=== PATIENT | male | born 1970 | race Caucasian/White ===

== ENCOUNTER 2020-10-20 00:54 | Inpatient (IN) | payer MEDICARE, MEDICAID ==
[~2020-10-20] VITALS: Ht 175.3 cm; Wt 257.9 kg
[2020-10-20 01:32] LABS: PLATELET COUNT 196 x10^3/uL (130-400); RED BLOOD COUNT 4.42 x10^6/uL (4.38-5.82); RED CELL DISTRIBUTION WIDTH 16.3 % (9.4-14.8)
[2020-10-20 01:43] LABS: ALANINE AMINOTRANSFERASE 27 U/L (12-78); ALBUMIN 2.9 g/dL (3.4-5.0); ANION GAP 4 mmol/L (5-15); CALCIUM 8.6 mg/dL (8.5-10.1); CHLORIDE 102 mmol/L (98-107); CREATININE 1.18 mg/dL (0.7-1.3)
[2020-10-20 01:51] LABS: BAND#(MANUAL) 0.19 x10^3/uL; BANDS%(MANUAL) 2 % (0-7); EOS#(MANUAL) 0.94 x10^3/uL (0.0-0.4); EOS% (MANUAL) 10 % (1-7); LYMPH#(MANUAL) 1.03 x10^3/uL (1-3.4); LYMPHS% (MANUAL) 11 % (22-44); MONOS#(MANUAL) 0.56 x10^3/uL (0.3-2.7); MONOS% (MANUAL) 6 % (2-9); SEG#(MANUAL) 6.67 x10^3/uL (1.8-6.8); SEGS% (MANUAL) 71 % (42-75)
[2020-10-20 01:52] LABS: <PLATELET ESTIMATE> ADEQUATE; <PLT MORPHOLOGY> NORMAL PLT MORPH; <RBC MORPHOLOGY> NORMAL
[2020-10-20] MEDS ORDERED: VANCOMYCIN PER PHARMACY MC ONE (02:00)
[2020-10-20] MEDS ORDERED: NYSTATIN TOPICAL POWDER 15GM TP SCH (02:00)
[2020-10-20] MEDS ORDERED: AMPICILLIN/SULBACTAM 3 GM in SODIUM CHLORIDE 0.9% 100 ML IV ONE (02:00)
[2020-10-20] MEDS ORDERED: MORPHINE SULFATE 4 MG/ML, 1ML IVPush PRN (02:00)
[2020-10-20] MEDS ORDERED: PLEASE ENTER ALLERGIES MC SCH (02:00)
[2020-10-20] MEDS ORDERED: SODIUM CHLORIDE FLUSH 10ML SYR IVF ONE (02:00)
[2020-10-20 02:02] LABS: ALKALINE PHOSPHATASE 70 U/L (45-117); BILIRUBIN,TOTAL 0.6 mg/dL (0.2-1.0); TROPONIN I < 0.015 ng/mL (0.000-0.045)
[2020-10-20 02:10] LABS: MICROSCOPIC AUTO
[2020-10-20] MEDS ORDERED: MORPHINE SULFATE 4 MG/ML, 1ML ONE (02:39)
[2020-10-20] MEDS ORDERED: VANCOMYCIN PER PHARMACY MC PRN (03:30)
[2020-10-20] MEDS: PHENAZOPYRIDINE 200 MG TABLET PO SCH ×4 (03:30→21:00)
[2020-10-20] MEDS ORDERED: LABETALOL 5MG/ML, 20ML IVPush PRN (03:30)
[2020-10-20] MEDS ORDERED: ONDANSETRON 2MG/ML, 2ML IVPush PRN (03:30)
[2020-10-20] MEDS ORDERED: MELATONIN 5 MG TABLET PO PRN (03:30)
[2020-10-20] MEDS: ENOXAPARIN 40 MG/0.4 ML SQ SCH (03:30)
[2020-10-20] MEDS: ACETAMINOPHEN 500 MG TABLET PO SCH ×5 (03:30→21:00)
[2020-10-20] MEDS ORDERED: FLUCONAZOLE 400 MG/200 ML 200 ML IV SCH ×2 (03:30→06:30)
[2020-10-20] MEDS ORDERED: KETOROLAC 30 MG/1 ML IV PRN (03:30)
[2020-10-20 05:02] VITALS: BP 139/78
[2020-10-20] MEDS ORDERED: VANCOMYCIN 3,000 MG in SODIUM CHLORIDE 0.9% 500 ML IV ONE (05:30)
[2020-10-20] MEDS ORDERED: PHARMACOKINETIC MONITORING MC PRN (05:30)
[2020-10-20 06:49] VITALS: BP 147/78
[2020-10-20 12:30] VITALS: BP 138/78
[2020-10-20] MEDS ORDERED: FUROSEMIDE 40 MG/4 ML IV ONE (14:00)
[2020-10-20] MEDS ORDERED: POTASSIUM CHLORIDE 20 MEQ TAB.ER.PRT PO ONE (14:00)
[2020-10-20] MEDS: VANCOMYCIN 2,500 MG in SODIUM CHLORIDE 0.9% 500 ML IV SCH (16:56)
[2020-10-20 20:57] VITALS: BP 136/74
[2020-10-21] MEDS: ACETAMINOPHEN 500 MG TABLET PO SCH ×6 (00:01→20:58)
[2020-10-21 01:17] VITALS: BP 113/73
[2020-10-21] MEDS: ENOXAPARIN 40 MG/0.4 ML SQ SCH (03:17)
[2020-10-21] MEDS: VANCOMYCIN 2,500 MG in SODIUM CHLORIDE 0.9% 500 ML IV SCH ×2 (05:05→17:00)
[2020-10-21 05:27] LABS: BASOPHILS % (AUTO) 1 % (0-1); EOSINOPHILS % (AUTO) 7 % (1-7); LYMPHOCYTES % (AUTO) 14 % (22-44); MEAN CORPUSCULAR HEMOGLOBIN 29.1 pg (27.5-34.5); MEAN CORPUSCULAR HGB CONC 32.8 g/dL (33.2-36.2); MEAN PLATELET VOLUME 8.1 fL (7.4-10.4); MONOCYTES % (AUTO) 7 % (2-9); NEUTROPHILS % (AUTO) 71 % (42-75); PLATELET COUNT 182 x10^3/uL (130-400); RED BLOOD COUNT 4.24 x10^6/uL (4.38-5.82)
[2020-10-21 05:46] LABS: CHLORIDE 102 mmol/L (98-107)
[2020-10-21 06:09] LABS: ANION GAP 4 mmol/L (5-15); CALCIUM 8.6 mg/dL (8.5-10.1); CREATININE 0.94 mg/dL (0.7-1.3)
[2020-10-21] MEDS: KETOROLAC 30 MG/1 ML IV SCH ×3 (06:30→22:17)
[2020-10-21] MEDS ORDERED: KETOROLAC MC SCH (06:30)
[2020-10-21 07:25] VITALS: BP 134/75
[2020-10-21] MEDS: FINASTERIDE 5 MG TABLET PO SCH (08:26)
[2020-10-21] MEDS: PHENAZOPYRIDINE 200 MG TABLET PO SCH ×3 (08:26→20:58)
[2020-10-21] MEDS: AMPICILLIN/SULBACTAM 3 GM in SODIUM CHLORIDE 0.9% 100 ML IV SCH ×3 (08:29→20:08)
[2020-10-21 13:10] VITALS: BP 126/71
[2020-10-21 19:23] VITALS: BP 132/72
[2020-10-21] MEDS: ENOXAPARIN 60 MG/0.6 ML SQ SCH (20:08)
[2020-10-21] MEDS: NYSTATIN OINT 15GM TP SCH (22:17)
[2020-10-22 00:04] VITALS: BP 137/74
[2020-10-22] MEDS: ACETAMINOPHEN 500 MG TABLET PO SCH ×6 (01:00→21:27)
[2020-10-22] MEDS: AMPICILLIN/SULBACTAM 3 GM in SODIUM CHLORIDE 0.9% 100 ML IV SCH ×4 (01:58→19:57)
[2020-10-22] MEDS: KETOROLAC 30 MG/1 ML IV SCH ×4 (04:16→22:48)
[2020-10-22 05:35] LABS: BASOPHILS % (AUTO) 1 % (0-1); EOSINOPHILS % (AUTO) 9 % (1-7); LYMPHOCYTES % (AUTO) 19 % (22-44); MEAN CORPUSCULAR HEMOGLOBIN 28.6 pg (27.5-34.5); MEAN CORPUSCULAR HGB CONC 32.5 g/dL (33.2-36.2); MEAN PLATELET VOLUME 7.9 fL (7.4-10.4); MONOCYTES % (AUTO) 7 % (2-9); NEUTROPHILS % (AUTO) 65 % (42-75); PLATELET COUNT 187 x10^3/uL (130-400); RED BLOOD COUNT 4.33 x10^6/uL (4.38-5.82); RED CELL DISTRIBUTION WIDTH 15.9 % (9.4-14.8)
[2020-10-22 05:45] LABS: ANION GAP 3 mmol/L (5-15); CALCIUM 8.6 mg/dL (8.5-10.1); CHLORIDE 102 mmol/L (98-107)
[2020-10-22 05:47] LABS: CREATININE 1.01 mg/dL (0.7-1.3)
[2020-10-22 06:46] VITALS: BP 131/77
[2020-10-22] MEDS: PHENAZOPYRIDINE 200 MG TABLET PO SCH ×3 (08:33→21:26)
[2020-10-22] MEDS: NYSTATIN OINT 15GM TP SCH ×2 (08:34→21:00)
[2020-10-22] MEDS: FINASTERIDE 5 MG TABLET PO SCH ×2 (08:40→08:58)
[2020-10-22] MEDS: ENOXAPARIN 60 MG/0.6 ML SQ SCH ×2 (08:57→21:27)
[2020-10-22 12:01] VITALS: BP 136/85
[2020-10-22 18:49] VITALS: BP 128/75
[2020-10-23 00:46] VITALS: BP 127/76
[2020-10-23] MEDS: ACETAMINOPHEN 500 MG TABLET PO SCH ×6 (01:17→21:27)
[2020-10-23] MEDS: AMPICILLIN/SULBACTAM 3 GM in SODIUM CHLORIDE 0.9% 100 ML IV SCH ×4 (02:41→21:26)
[2020-10-23] MEDS: KETOROLAC 30 MG/1 ML IV SCH ×4 (04:42→21:30)
[2020-10-23 07:05] VITALS: BP 144/82
[2020-10-23] MEDS: PHENAZOPYRIDINE 200 MG TABLET PO SCH ×3 (08:31→21:27)
[2020-10-23] MEDS: FINASTERIDE 5 MG TABLET PO SCH (08:32)
[2020-10-23] MEDS: ENOXAPARIN 60 MG/0.6 ML SQ SCH ×2 (08:33→21:26)
[2020-10-23] MEDS: NYSTATIN OINT 15GM TP SCH ×2 (08:33→21:28)
[2020-10-23 14:07] VITALS: BP 149/92
[2020-10-23 20:15] VITALS: BP 139/78
[2020-10-24 00:06] VITALS: BP 132/79
[2020-10-24] MEDS: ACETAMINOPHEN 500 MG TABLET PO SCH ×6 (01:00→21:17)
[2020-10-24] MEDS: AMPICILLIN/SULBACTAM 3 GM in SODIUM CHLORIDE 0.9% 100 ML IV SCH ×2 (03:27→09:36)
[2020-10-24] MEDS: KETOROLAC 30 MG/1 ML IV SCH ×4 (06:03→23:58)
[2020-10-24 07:00] VITALS: BP 155/79
[2020-10-24] MEDS: NYSTATIN OINT 15GM TP SCH ×2 (09:00→21:23)
[2020-10-24] MEDS: PHENAZOPYRIDINE 200 MG TABLET PO SCH ×3 (09:35→21:17)
[2020-10-24] MEDS: FINASTERIDE 5 MG TABLET PO SCH (09:36)
[2020-10-24] MEDS: ENOXAPARIN 60 MG/0.6 ML SQ SCH ×2 (09:36→21:17)
[2020-10-24] MEDS ORDERED: FUROSEMIDE 40 MG/4 ML IV ONE ×2 (12:30→18:00)
[2020-10-24 13:47] VITALS: BP 124/71
[2020-10-24 20:08] VITALS: BP 160/83
[2020-10-24] MEDS: AMOXICILLIN/CLAV 875-125MG TABLET PO SCH (21:17)
[2020-10-25 01:31] VITALS: BP 140/72
[2020-10-25] MEDS: ACETAMINOPHEN 500 MG TABLET PO SCH ×6 (01:39→20:10)
[2020-10-25] MEDS: KETOROLAC 30 MG/1 ML IV SCH ×4 (06:01→23:32)
[2020-10-25 06:10] LABS: BASOPHILS % (AUTO) 1 % (0-1); EOSINOPHILS % (AUTO) 7 % (1-7); LYMPHOCYTES % (AUTO) 17 % (22-44); MEAN CORPUSCULAR HEMOGLOBIN 28.7 pg (27.5-34.5); MEAN CORPUSCULAR HGB CONC 32.7 g/dL (33.2-36.2); MEAN PLATELET VOLUME 7.8 fL (7.4-10.4); MONOCYTES % (AUTO) 7 % (2-9); NEUTROPHILS % (AUTO) 68 % (42-75); PLATELET COUNT 175 x10^3/uL (130-400); RED BLOOD COUNT 4.42 x10^6/uL (4.38-5.82); RED CELL DISTRIBUTION WIDTH 15.5 % (9.4-14.8)
[2020-10-25 06:21] LABS: ANION GAP 2 mmol/L (5-15); CALCIUM 8.9 mg/dL (8.5-10.1); CHLORIDE 101 mmol/L (98-107); CREATININE 1.03 mg/dL (0.7-1.3)
[2020-10-25 08:37] VITALS: BP 148/70
[2020-10-25] MEDS: PHENAZOPYRIDINE 200 MG TABLET PO SCH ×3 (08:59→20:10)
[2020-10-25] MEDS: AMOXICILLIN/CLAV 875-125MG TABLET PO SCH ×2 (08:59→20:10)
[2020-10-25] MEDS: FINASTERIDE 5 MG TABLET PO SCH (08:59)
[2020-10-25] MEDS: ENOXAPARIN 60 MG/0.6 ML SQ SCH ×2 (08:59→20:09)
[2020-10-25] MEDS: NYSTATIN OINT 15GM TP SCH (09:00)
[2020-10-25] MEDS ORDERED: FUROSEMIDE 20 MG TABLET PO SCH (12:30)
[2020-10-25 12:37] VITALS: BP 162/70
[2020-10-25] MEDS: FUROSEMIDE 20 MG TABLET PO SCH ×2 (14:30→20:10)
[2020-10-25 20:04] VITALS: BP 153/86
[2020-10-26 00:02] VITALS: BP 138/69
[2020-10-26] MEDS: NYSTATIN OINT 15GM TP SCH ×3 (00:13→22:23)
[2020-10-26] MEDS: ACETAMINOPHEN 500 MG TABLET PO SCH ×5 (02:50→21:36)
[2020-10-26] MEDS: KETOROLAC 30 MG/1 ML IV SCH (05:47)
[2020-10-26 07:16] VITALS: BP 147/89
[2020-10-26] MEDS: FUROSEMIDE 20 MG TABLET PO SCH ×2 (10:25→21:37)
[2020-10-26] MEDS: AMOXICILLIN/CLAV 875-125MG TABLET PO SCH ×2 (10:25→21:37)
[2020-10-26] MEDS: PHENAZOPYRIDINE 200 MG TABLET PO SCH ×3 (10:25→21:36)
[2020-10-26] MEDS: ENOXAPARIN 60 MG/0.6 ML SQ SCH ×2 (10:30→21:36)
[2020-10-26] MEDS: FINASTERIDE 5 MG TABLET PO SCH (10:31)
[2020-10-26] MEDS ORDERED: ALLO300T PO (10:50)
[2020-10-26] MEDS ORDERED: FURO40TA6 PO (10:50)
[2020-10-26] MEDS ORDERED: LEVO50CA4 PO (10:50)
[2020-10-26] MEDS ORDERED: DILT360C26 PO (10:50)
[2020-10-26] MEDS ORDERED: LOSA1TAB19 PO (10:50)
[2020-10-26 12:33] VITALS: BP 122/58
[2020-10-26 19:44] VITALS: BP 138/74
[2020-10-27 00:09] VITALS: BP 119/72
[2020-10-27] MEDS: ACETAMINOPHEN 500 MG TABLET PO SCH ×6 (01:39→21:48)
[2020-10-27 06:09] LABS: CHLORIDE 98 mmol/L (98-107)
[2020-10-27 06:14] LABS: ANION GAP 11 mmol/L (5-15); CALCIUM 9.1 mg/dL (8.5-10.1); CREATININE 1.15 mg/dL (0.7-1.3)
[2020-10-27 09:01] VITALS: BP 113/69
[2020-10-27] MEDS: AMOXICILLIN/CLAV 875-125MG TABLET PO SCH ×2 (10:27→20:19)
[2020-10-27] MEDS: FUROSEMIDE 20 MG TABLET PO SCH ×2 (10:28→20:19)
[2020-10-27] MEDS: ENOXAPARIN 60 MG/0.6 ML SQ SCH ×2 (10:28→20:19)
[2020-10-27] MEDS: FINASTERIDE 5 MG TABLET PO SCH (10:28)
[2020-10-27] MEDS: NYSTATIN OINT 15GM TP SCH ×2 (10:29→20:20)
[2020-10-27] MEDS: PHENAZOPYRIDINE 200 MG TABLET PO SCH ×3 (10:30→20:19)
[2020-10-27 12:28] VITALS: BP 136/83
[2020-10-27 19:25] VITALS: BP 132/80
[2020-10-28 00:27] VITALS: BP 158/78
[2020-10-28] MEDS: ACETAMINOPHEN 500 MG TABLET PO SCH ×6 (02:00→21:23)
[2020-10-28] MEDS: LEVOTHYROXINE 50 MCG TABLET PO SCH (05:59)
[2020-10-28] MEDS: PHENAZOPYRIDINE 200 MG TABLET PO SCH ×3 (09:08→21:23)
[2020-10-28] MEDS: AMOXICILLIN/CLAV 875-125MG TABLET PO SCH ×2 (09:08→21:23)
[2020-10-28] MEDS: FUROSEMIDE 20 MG TABLET PO SCH ×2 (09:09→21:23)
[2020-10-28] MEDS: ALLOPURINOL 300 MG TABLET PO SCH (09:09)
[2020-10-28] MEDS: DILTIAZEM CD 180 MG CAP.ER.24H PO SCH (09:09)
[2020-10-28] MEDS: FINASTERIDE 5 MG TABLET PO SCH (09:09)
[2020-10-28] MEDS: ENOXAPARIN 60 MG/0.6 ML SQ SCH ×2 (09:09→21:23)
[2020-10-28] MEDS: NYSTATIN OINT 15GM TP SCH ×2 (09:10→21:24)
[2020-10-28 13:10] VITALS: BP 129/75
[2020-10-28 19:24] VITALS: BP 125/74
[2020-10-29 00:38] VITALS: BP 139/73
[2020-10-29] MEDS: ACETAMINOPHEN 500 MG TABLET PO SCH ×6 (02:06→21:53)
[2020-10-29] MEDS: LEVOTHYROXINE 50 MCG TABLET PO SCH (06:05)
[2020-10-29 06:54] VITALS: BP 129/69
[2020-10-29] MEDS: ALLOPURINOL 300 MG TABLET PO SCH (08:54)
[2020-10-29] MEDS: TAMSULOSIN 0.4 MG CAP.ER.24H PO SCH (08:54)
[2020-10-29] MEDS: DILTIAZEM CD 180 MG CAP.ER.24H PO SCH (08:54)
[2020-10-29] MEDS: AMOXICILLIN/CLAV 875-125MG TABLET PO SCH ×2 (08:54→21:53)
[2020-10-29] MEDS: PHENAZOPYRIDINE 200 MG TABLET PO SCH ×3 (08:55→21:53)
[2020-10-29] MEDS: FUROSEMIDE 20 MG TABLET PO SCH ×2 (08:55→21:53)
[2020-10-29] MEDS: NYSTATIN OINT 15GM TP SCH ×2 (08:55→21:53)
[2020-10-29] MEDS: ENOXAPARIN 60 MG/0.6 ML SQ SCH ×2 (08:57→21:56)
[2020-10-29] MEDS: FINASTERIDE 5 MG TABLET PO SCH (12:14)
[2020-10-29 12:58] VITALS: BP 122/71
[2020-10-29 19:25] VITALS: BP 125/75
[2020-10-30 00:05] VITALS: BP 113/73
[2020-10-30] MEDS: ACETAMINOPHEN 500 MG TABLET PO SCH ×6 (02:28→21:27)
[2020-10-30] MEDS: LEVOTHYROXINE 50 MCG TABLET PO SCH (05:57)
[2020-10-30 07:21] VITALS: BP 152/74
[2020-10-30] MEDS: FUROSEMIDE 20 MG TABLET PO SCH ×2 (09:07→21:27)
[2020-10-30] MEDS: AMOXICILLIN/CLAV 875-125MG TABLET PO SCH ×2 (09:07→21:27)
[2020-10-30] MEDS: ALLOPURINOL 300 MG TABLET PO SCH (09:07)
[2020-10-30] MEDS: TAMSULOSIN 0.4 MG CAP.ER.24H PO SCH (09:07)
[2020-10-30] MEDS: DILTIAZEM CD 180 MG CAP.ER.24H PO SCH (09:07)
[2020-10-30] MEDS: PHENAZOPYRIDINE 200 MG TABLET PO SCH ×3 (09:07→21:27)
[2020-10-30] MEDS: FINASTERIDE 5 MG TABLET PO SCH (09:07)
[2020-10-30] MEDS: NYSTATIN OINT 15GM TP SCH ×2 (09:08→23:33)
[2020-10-30] MEDS: ENOXAPARIN 60 MG/0.6 ML SQ SCH ×2 (09:08→21:28)
[2020-10-30 20:40] VITALS: BP 147/76
[2020-10-30] MEDS: DIAPER RASH/ZINC OXIDE PASTE 40%, 56GM TP SCH (23:41)
[2020-10-31] MEDS: ACETAMINOPHEN 500 MG TABLET PO SCH ×5 (03:14→22:37)
[2020-10-31 03:23] VITALS: BP 115/74
[2020-10-31] MEDS: LEVOTHYROXINE 50 MCG TABLET PO SCH (05:32)
[2020-10-31 06:33] VITALS: BP 137/76
[2020-10-31] MEDS: DIAPER RASH/ZINC OXIDE PASTE 40%, 56GM TP SCH ×2 (09:00→22:18)
[2020-10-31] MEDS: AMOXICILLIN/CLAV 875-125MG TABLET PO SCH (11:36)
[2020-10-31] MEDS: PHENAZOPYRIDINE 200 MG TABLET PO SCH ×3 (11:36→22:18)
[2020-10-31] MEDS: DILTIAZEM CD 180 MG CAP.ER.24H PO SCH (11:37)
[2020-10-31] MEDS: ALLOPURINOL 300 MG TABLET PO SCH (11:38)
[2020-10-31] MEDS: TAMSULOSIN 0.4 MG CAP.ER.24H PO SCH (11:38)
[2020-10-31] MEDS: FUROSEMIDE 20 MG TABLET PO SCH ×2 (11:38→22:18)
[2020-10-31] MEDS: FLUCONAZOLE 200 MG TABLET PO SCH (11:39)
[2020-10-31] MEDS: FINASTERIDE 5 MG TABLET PO SCH (11:50)
[2020-10-31] MEDS: ENOXAPARIN 60 MG/0.6 ML SQ SCH ×2 (11:50→23:49)
[2020-10-31] MEDS: NYSTATIN OINT 15GM TP SCH ×2 (11:51→22:18)
[2020-10-31 12:36] VITALS: BP 142/76
[2020-10-31 19:46] VITALS: BP 138/72
[2020-10-31 22:15] VITALS: BP 128/81
[2020-11-01 02:27] VITALS: BP 140/70
[2020-11-01] MEDS: ACETAMINOPHEN 500 MG TABLET PO SCH ×5 (02:51→22:40)
[2020-11-01 04:47] LABS: CREATININE 0.95 mg/dL (0.7-1.3)
[2020-11-01] MEDS: LEVOTHYROXINE 50 MCG TABLET PO SCH (05:41)
[2020-11-01 07:57] VITALS: BP 155/76
[2020-11-01] MEDS: FUROSEMIDE 20 MG TABLET PO SCH ×2 (08:00→20:24)
[2020-11-01] MEDS: DILTIAZEM CD 180 MG CAP.ER.24H PO SCH (08:00)
[2020-11-01] MEDS: FLUCONAZOLE 200 MG TABLET PO SCH (08:00)
[2020-11-01] MEDS: ALLOPURINOL 300 MG TABLET PO SCH (08:00)
[2020-11-01] MEDS: PHENAZOPYRIDINE 200 MG TABLET PO SCH ×3 (08:00→20:24)
[2020-11-01] MEDS: TAMSULOSIN 0.4 MG CAP.ER.24H PO SCH (08:02)
[2020-11-01] MEDS: FINASTERIDE 5 MG TABLET PO SCH (08:03)
[2020-11-01] MEDS: NYSTATIN OINT 15GM TP SCH ×2 (08:03→20:24)
[2020-11-01] MEDS: DIAPER RASH/ZINC OXIDE PASTE 40%, 56GM TP SCH ×2 (08:04→20:24)
[2020-11-01 12:28] VITALS: BP 135/77
[2020-11-01] MEDS: ENOXAPARIN 60 MG/0.6 ML SQ SCH (15:41)
[2020-11-01 20:20] VITALS: BP 126/80
[2020-11-02 02:30] VITALS: BP 113/73
[2020-11-02] MEDS: ACETAMINOPHEN 500 MG TABLET PO SCH ×5 (03:07→21:17)
[2020-11-02] MEDS: ENOXAPARIN 60 MG/0.6 ML SQ SCH ×2 (03:09→15:31)
[2020-11-02] MEDS: LEVOTHYROXINE 50 MCG TABLET PO SCH (05:15)
[2020-11-02 07:31] VITALS: BP 143/84
[2020-11-02] MEDS: DILTIAZEM CD 180 MG CAP.ER.24H PO SCH (08:47)
[2020-11-02] MEDS: FUROSEMIDE 20 MG TABLET PO SCH ×2 (08:48→21:17)
[2020-11-02] MEDS: FLUCONAZOLE 200 MG TABLET PO SCH (08:48)
[2020-11-02] MEDS: ALLOPURINOL 300 MG TABLET PO SCH (08:48)
[2020-11-02] MEDS: TAMSULOSIN 0.4 MG CAP.ER.24H PO SCH (08:48)
[2020-11-02] MEDS: PHENAZOPYRIDINE 200 MG TABLET PO SCH ×3 (08:48→21:17)
[2020-11-02] MEDS: FINASTERIDE 5 MG TABLET PO SCH (08:50)
[2020-11-02] MEDS: NYSTATIN OINT 15GM TP SCH ×2 (08:54→21:18)
[2020-11-02] MEDS: DIAPER RASH/ZINC OXIDE PASTE 40%, 56GM TP SCH ×3 (08:54→21:18)
[2020-11-02 13:35] VITALS: BP 115/73
[2020-11-02 18:50] VITALS: BP 132/75
[2020-11-03 01:33] VITALS: BP 121/73
[2020-11-03] MEDS: ENOXAPARIN 60 MG/0.6 ML SQ SCH ×2 (02:09→15:13)
[2020-11-03] MEDS: ACETAMINOPHEN 500 MG TABLET PO SCH ×6 (02:09→22:16)
[2020-11-03] MEDS: LEVOTHYROXINE 50 MCG TABLET PO SCH (05:35)
[2020-11-03 09:00] VITALS: BP 125/76
[2020-11-03] MEDS: FINASTERIDE 5 MG TABLET PO SCH (09:07)
[2020-11-03] MEDS: NYSTATIN OINT 15GM TP SCH ×2 (09:08→22:16)
[2020-11-03] MEDS: ALLOPURINOL 300 MG TABLET PO SCH (09:09)
[2020-11-03] MEDS: PHENAZOPYRIDINE 200 MG TABLET PO SCH ×3 (09:09→22:16)
[2020-11-03] MEDS: DILTIAZEM CD 180 MG CAP.ER.24H PO SCH (09:09)
[2020-11-03] MEDS: TAMSULOSIN 0.4 MG CAP.ER.24H PO SCH (09:09)
[2020-11-03] MEDS: FLUCONAZOLE 200 MG TABLET PO SCH (09:09)
[2020-11-03] MEDS: FUROSEMIDE 20 MG TABLET PO SCH (09:10)
[2020-11-03] MEDS: DIAPER RASH/ZINC OXIDE PASTE 40%, 56GM TP SCH ×2 (09:10→22:16)
[2020-11-03 12:56] VITALS: BP 138/75
[2020-11-03 14:14] LABS: BASOPHILS % (AUTO) 0 % (0-1); EOSINOPHILS % (AUTO) 5 % (1-7); LYMPHOCYTES % (AUTO) 17 % (22-44); MEAN CORPUSCULAR HEMOGLOBIN 28.8 pg (27.5-34.5); MEAN CORPUSCULAR HGB CONC 32.6 g/dL (33.2-36.2); MEAN PLATELET VOLUME 8.2 fL (7.4-10.4); MONOCYTES % (AUTO) 9 % (2-9); NEUTROPHILS % (AUTO) 69 % (42-75); PLATELET COUNT 222 x10^3/uL (130-400); RED BLOOD COUNT 4.33 x10^6/uL (4.38-5.82); RED CELL DISTRIBUTION WIDTH 15.5 % (9.4-14.8)
[2020-11-03 14:21] LABS: ALANINE AMINOTRANSFERASE 40 U/L (12-78); ANION GAP 3 mmol/L (5-15); CALCIUM 8.4 mg/dL (8.5-10.1); CHLORIDE 100 mmol/L (98-107); CREATININE 0.96 mg/dL (0.7-1.3)
[2020-11-03 14:24] LABS: ALKALINE PHOSPHATASE 61 U/L (45-117); BILIRUBIN,TOTAL 0.4 mg/dL (0.2-1.0); TOTAL PROTEIN 7.1 g/dL (6.4-8.2)
[2020-11-03 15:04] LABS: HCT (SEDRATE) 38.2 % (39.2-51.8)
[2020-11-03 18:36] VITALS: BP 144/79
[2020-11-03] MEDS: FUROSEMIDE 40 MG TABLET PO SCH (22:16)
[2020-11-04 00:01] VITALS: BP 139/70
[2020-11-04] MEDS: ENOXAPARIN 60 MG/0.6 ML SQ SCH ×2 (02:39→14:35)
[2020-11-04] MEDS: ACETAMINOPHEN 500 MG TABLET PO SCH ×6 (02:39→21:45)
[2020-11-04] MEDS: LEVOTHYROXINE 50 MCG TABLET PO SCH (05:25)
[2020-11-04 06:07] LABS: CREATININE 0.97 mg/dL (0.7-1.3)
[2020-11-04 07:15] VITALS: BP 133/80
[2020-11-04] MEDS: FINASTERIDE 5 MG TABLET PO SCH (09:13)
[2020-11-04] MEDS: NYSTATIN OINT 15GM TP SCH ×2 (09:13→21:46)
[2020-11-04] MEDS: ALLOPURINOL 300 MG TABLET PO SCH (09:14)
[2020-11-04] MEDS: PHENAZOPYRIDINE 200 MG TABLET PO SCH ×3 (09:14→21:45)
[2020-11-04] MEDS: TAMSULOSIN 0.4 MG CAP.ER.24H PO SCH (09:14)
[2020-11-04] MEDS: FUROSEMIDE 40 MG TABLET PO SCH ×2 (09:14→21:46)
[2020-11-04] MEDS: FLUCONAZOLE 200 MG TABLET PO SCH (09:14)
[2020-11-04] MEDS: DILTIAZEM CD 180 MG CAP.ER.24H PO SCH (09:14)
[2020-11-04] MEDS: DIAPER RASH/ZINC OXIDE PASTE 40%, 56GM TP SCH ×2 (09:17→21:46)
[2020-11-04 12:17] VITALS: BP 137/81
[2020-11-04 19:54] VITALS: BP 127/78
[2020-11-05 00:11] VITALS: BP 143/73
[2020-11-05] MEDS: ACETAMINOPHEN 500 MG TABLET PO SCH ×6 (02:32→22:28)
[2020-11-05] MEDS: LEVOTHYROXINE 50 MCG TABLET PO SCH (05:54)
[2020-11-05] MEDS: ENOXAPARIN 60 MG/0.6 ML SQ SCH ×2 (05:54→14:21)
[2020-11-05 06:38] VITALS: BP 124/76
[2020-11-05] MEDS: FINASTERIDE 5 MG TABLET PO SCH (09:12)
[2020-11-05] MEDS: TAMSULOSIN 0.4 MG CAP.ER.24H PO SCH (09:13)
[2020-11-05] MEDS: FLUCONAZOLE 200 MG TABLET PO SCH (09:13)
[2020-11-05] MEDS: FUROSEMIDE 40 MG TABLET PO SCH ×2 (09:13→20:40)
[2020-11-05] MEDS: ALLOPURINOL 300 MG TABLET PO SCH (09:13)
[2020-11-05] MEDS: DILTIAZEM CD 180 MG CAP.ER.24H PO SCH (09:13)
[2020-11-05] MEDS: DIAPER RASH/ZINC OXIDE PASTE 40%, 56GM TP SCH ×2 (09:14→20:41)
[2020-11-05] MEDS: NYSTATIN OINT 15GM TP SCH ×2 (09:14→20:41)
[2020-11-05] MEDS: PHENAZOPYRIDINE 200 MG TABLET PO SCH ×3 (10:25→20:40)
[2020-11-05 13:21] VITALS: BP 117/73
[2020-11-05 19:03] VITALS: BP 148/84
[2020-11-06 00:16] VITALS: BP 127/79
[2020-11-06] MEDS: ACETAMINOPHEN 500 MG TABLET PO SCH ×6 (02:00→21:27)
[2020-11-06] MEDS: LEVOTHYROXINE 50 MCG TABLET PO SCH (06:33)
[2020-11-06] MEDS: ENOXAPARIN 60 MG/0.6 ML SQ SCH ×2 (06:33→16:36)
[2020-11-06 07:55] VITALS: BP 128/78
[2020-11-06] MEDS: DILTIAZEM CD 180 MG CAP.ER.24H PO SCH (08:03)
[2020-11-06] MEDS: PHENAZOPYRIDINE 200 MG TABLET PO SCH ×3 (08:04→21:27)
[2020-11-06] MEDS: FLUCONAZOLE 200 MG TABLET PO SCH (08:04)
[2020-11-06] MEDS: FUROSEMIDE 40 MG TABLET PO SCH ×2 (08:04→21:27)
[2020-11-06] MEDS: NYSTATIN OINT 15GM TP SCH ×2 (08:04→21:27)
[2020-11-06] MEDS: TAMSULOSIN 0.4 MG CAP.ER.24H PO SCH (08:04)
[2020-11-06] MEDS: ALLOPURINOL 300 MG TABLET PO SCH (08:04)
[2020-11-06] MEDS: DIAPER RASH/ZINC OXIDE PASTE 40%, 56GM TP SCH ×2 (08:05→21:27)
[2020-11-06] MEDS: FINASTERIDE 5 MG TABLET PO SCH (08:06)
[2020-11-06 13:01] VITALS: BP 118/72
[2020-11-06 20:00] VITALS: BP 117/80
[2020-11-07 01:00] VITALS: BP 127/79
[2020-11-07] MEDS: ACETAMINOPHEN 500 MG TABLET PO SCH ×6 (01:56→21:26)
[2020-11-07 06:28] LABS: BASOPHILS % (AUTO) 1 % (0-1); EOSINOPHILS % (AUTO) 6 % (1-7); LYMPHOCYTES % (AUTO) 17 % (22-44); MEAN CORPUSCULAR HEMOGLOBIN 28.8 pg (27.5-34.5); MEAN CORPUSCULAR HGB CONC 32.8 g/dL (33.2-36.2); MEAN PLATELET VOLUME 8.3 fL (7.4-10.4); MONOCYTES % (AUTO) 7 % (2-9); NEUTROPHILS % (AUTO) 69 % (42-75); PLATELET COUNT 217 x10^3/uL (130-400); RED BLOOD COUNT 4.76 x10^6/uL (4.38-5.82); RED CELL DISTRIBUTION WIDTH 15.1 % (9.4-14.8)
[2020-11-07 06:34] LABS: ALBUMIN 3.3 g/dL (3.4-5.0); ANION GAP 6 mmol/L (5-15); CALCIUM 9.6 mg/dL (8.5-10.1); CHLORIDE 99 mmol/L (98-107)
[2020-11-07 06:37] LABS: ALANINE AMINOTRANSFERASE 39 U/L (12-78); ALKALINE PHOSPHATASE 67 U/L (45-117); BILIRUBIN,TOTAL 0.5 mg/dL (0.2-1.0); CREATININE 0.95 mg/dL (0.7-1.3); TOTAL PROTEIN 7.8 g/dL (6.4-8.2)
[2020-11-07] MEDS: ENOXAPARIN 60 MG/0.6 ML SQ SCH ×2 (06:42→18:08)
[2020-11-07] MEDS: LEVOTHYROXINE 50 MCG TABLET PO SCH (06:42)
[2020-11-07 07:11] VITALS: BP 138/83
[2020-11-07] MEDS: ALLOPURINOL 300 MG TABLET PO SCH (08:51)
[2020-11-07] MEDS: POLYETHYLENE GLYCOL 17 GM PACKET PO PRN (08:51)
[2020-11-07] MEDS: FUROSEMIDE 40 MG TABLET PO SCH ×2 (08:51→21:26)
[2020-11-07] MEDS: PHENAZOPYRIDINE 200 MG TABLET PO SCH ×3 (08:51→21:26)
[2020-11-07] MEDS: DILTIAZEM CD 180 MG CAP.ER.24H PO SCH (08:51)
[2020-11-07] MEDS: FLUCONAZOLE 200 MG TABLET PO SCH (08:51)
[2020-11-07] MEDS: TAMSULOSIN 0.4 MG CAP.ER.24H PO SCH (08:51)
[2020-11-07] MEDS: DIAPER RASH/ZINC OXIDE PASTE 40%, 56GM TP SCH ×2 (08:52→21:27)
[2020-11-07] MEDS: NYSTATIN OINT 15GM TP SCH ×2 (08:52→21:27)
[2020-11-07] MEDS: FINASTERIDE 5 MG TABLET PO SCH (08:53)
[2020-11-07 13:11] VITALS: BP 117/61
[2020-11-07 18:57] VITALS: BP 114/79
[2020-11-08 01:19] VITALS: BP 120/79
[2020-11-08] MEDS: ACETAMINOPHEN 500 MG TABLET PO SCH ×6 (02:31→21:38)
[2020-11-08] MEDS: LEVOTHYROXINE 50 MCG TABLET PO SCH (06:18)
[2020-11-08] MEDS: ENOXAPARIN 60 MG/0.6 ML SQ SCH ×2 (06:18→18:13)
[2020-11-08] MEDS: FLUCONAZOLE 200 MG TABLET PO SCH (07:49)
[2020-11-08] MEDS: FINASTERIDE 5 MG TABLET PO SCH (07:49)
[2020-11-08] MEDS: ALLOPURINOL 300 MG TABLET PO SCH (07:49)
[2020-11-08] MEDS: FUROSEMIDE 40 MG TABLET PO SCH ×2 (07:49→21:38)
[2020-11-08] MEDS: TAMSULOSIN 0.4 MG CAP.ER.24H PO SCH (07:49)
[2020-11-08] MEDS: NYSTATIN OINT 15GM TP SCH ×2 (07:50→21:38)
[2020-11-08] MEDS: PHENAZOPYRIDINE 200 MG TABLET PO SCH ×3 (07:50→21:38)
[2020-11-08] MEDS: DIAPER RASH/ZINC OXIDE PASTE 40%, 56GM TP SCH ×2 (07:51→21:38)
[2020-11-08 08:06] VITALS: BP 109/74
[2020-11-08] MEDS: DILTIAZEM CD 180 MG CAP.ER.24H PO SCH (09:38)
[2020-11-08 13:00] VITALS: BP 111/76
[2020-11-08 20:24] VITALS: BP 140/83
[2020-11-09 00:46] VITALS: BP 139/82
[2020-11-09] MEDS: ACETAMINOPHEN 500 MG TABLET PO SCH ×6 (01:39→22:09)
[2020-11-09] MEDS: POLYETHYLENE GLYCOL 17 GM PACKET PO PRN (03:42)
[2020-11-09] MEDS: LEVOTHYROXINE 50 MCG TABLET PO SCH (05:39)
[2020-11-09] MEDS: ENOXAPARIN 60 MG/0.6 ML SQ SCH ×2 (05:39→18:43)
[2020-11-09 09:12] VITALS: BP 145/76
[2020-11-09] MEDS: FUROSEMIDE 40 MG TABLET PO SCH ×2 (10:15→21:49)
[2020-11-09] MEDS: PHENAZOPYRIDINE 200 MG TABLET PO SCH ×3 (10:15→21:49)
[2020-11-09] MEDS: FLUCONAZOLE 200 MG TABLET PO SCH (10:15)
[2020-11-09] MEDS: DILTIAZEM CD 180 MG CAP.ER.24H PO SCH (10:16)
[2020-11-09] MEDS: ALLOPURINOL 300 MG TABLET PO SCH (10:16)
[2020-11-09] MEDS: TAMSULOSIN 0.4 MG CAP.ER.24H PO SCH (10:16)
[2020-11-09] MEDS: DIAPER RASH/ZINC OXIDE PASTE 40%, 56GM TP SCH ×2 (10:17→21:50)
[2020-11-09] MEDS: NYSTATIN OINT 15GM TP SCH ×2 (10:17→21:50)
[2020-11-09] MEDS: FINASTERIDE 5 MG TABLET PO SCH (10:18)
[2020-11-09 15:39] VITALS: BP 142/84
[2020-11-09] MEDS: AMPICILLIN/SULBACTAM 3 GM in SODIUM CHLORIDE 0.9% 100 ML IV SCH (18:43)
[2020-11-09 20:24] VITALS: BP 123/81
[2020-11-10 00:21] VITALS: BP 157/80
[2020-11-10] MEDS: ACETAMINOPHEN 500 MG TABLET PO SCH ×5 (02:17→20:24)
[2020-11-10] MEDS: AMPICILLIN/SULBACTAM 3 GM in SODIUM CHLORIDE 0.9% 100 ML IV SCH ×3 (02:17→18:32)
[2020-11-10] MEDS: ENOXAPARIN 60 MG/0.6 ML SQ SCH ×2 (06:23→17:13)
[2020-11-10] MEDS: LEVOTHYROXINE 50 MCG TABLET PO SCH (06:23)
[2020-11-10 06:31] LABS: CREATININE 0.95 mg/dL (0.7-1.3)
[2020-11-10 08:13] VITALS: BP 110/73
[2020-11-10] MEDS: FUROSEMIDE 40 MG TABLET PO SCH ×2 (10:08→20:24)
[2020-11-10] MEDS: DILTIAZEM CD 180 MG CAP.ER.24H PO SCH (10:08)
[2020-11-10] MEDS: TAMSULOSIN 0.4 MG CAP.ER.24H PO SCH (10:08)
[2020-11-10] MEDS: PHENAZOPYRIDINE 200 MG TABLET PO SCH ×3 (10:08→20:24)
[2020-11-10] MEDS: ALLOPURINOL 300 MG TABLET PO SCH (10:08)
[2020-11-10] MEDS: FINASTERIDE 5 MG TABLET PO SCH (10:08)
[2020-11-10] MEDS: DIAPER RASH/ZINC OXIDE PASTE 40%, 56GM TP SCH ×2 (10:09→20:25)
[2020-11-10] MEDS: POLYETHYLENE GLYCOL 17 GM PACKET PO PRN (10:09)
[2020-11-10] MEDS: FLUCONAZOLE 200 MG TABLET PO SCH (10:09)
[2020-11-10] MEDS: NYSTATIN OINT 15GM TP SCH ×2 (10:10→20:25)
[2020-11-10] MEDS ORDERED: HYDROcodone/APAP 10/325 MG TABLET PO ONE (10:30)
[2020-11-10] MEDS: LIDODERM 5% PATCH TD SCH (10:58)
[2020-11-10] MEDS ORDERED: MAGNESIUM HYDROXIDE 8%, 30ML UDC PO PRN (11:00)
[2020-11-10] MEDS ORDERED: CYCLOBENZAPRINE 10 MG TABLET PO PRN (11:30)
[2020-11-10 13:06] VITALS: BP 122/59
[2020-11-10 20:34] VITALS: BP 146/85
[2020-11-10] MEDS: LIDODERM REMOVE PATCH NOTE XX SCH (22:30)
[2020-11-11] MEDS: ACETAMINOPHEN 500 MG TABLET PO SCH ×7 (00:47→21:06)
[2020-11-11 02:20] VITALS: BP 111/73
[2020-11-11] MEDS: AMPICILLIN/SULBACTAM 3 GM in SODIUM CHLORIDE 0.9% 100 ML IV SCH ×2 (03:16→10:04)
[2020-11-11] MEDS: LEVOTHYROXINE 50 MCG TABLET PO SCH (06:04)
[2020-11-11] MEDS: ENOXAPARIN 60 MG/0.6 ML SQ SCH ×2 (06:04→17:06)
[2020-11-11 08:51] VITALS: BP 115/69
[2020-11-11] MEDS: LIDODERM 5% PATCH TD SCH (08:54)
[2020-11-11] MEDS: FLUCONAZOLE 200 MG TABLET PO SCH (08:55)
[2020-11-11] MEDS: ALLOPURINOL 300 MG TABLET PO SCH (08:55)
[2020-11-11] MEDS: FINASTERIDE 5 MG TABLET PO SCH (08:55)
[2020-11-11] MEDS: PHENAZOPYRIDINE 200 MG TABLET PO SCH ×3 (08:55→21:06)
[2020-11-11] MEDS: TAMSULOSIN 0.4 MG CAP.ER.24H PO SCH (08:55)
[2020-11-11] MEDS: FUROSEMIDE 40 MG TABLET PO SCH ×2 (08:55→21:06)
[2020-11-11] MEDS: DILTIAZEM CD 180 MG CAP.ER.24H PO SCH (08:55)
[2020-11-11] MEDS: NYSTATIN OINT 15GM TP SCH ×2 (08:58→21:08)
[2020-11-11] MEDS: DIAPER RASH/ZINC OXIDE PASTE 40%, 56GM TP SCH ×2 (08:59→21:08)
[2020-11-11 15:30] VITALS: BP 113/70
[2020-11-11 19:06] VITALS: BP 113/81
[2020-11-11] MEDS: LIDODERM REMOVE PATCH NOTE XX SCH (22:30)
[2020-11-12 00:55] VITALS: BP 133/81
[2020-11-12] MEDS: ACETAMINOPHEN 500 MG TABLET PO SCH ×6 (01:56→20:33)
[2020-11-12] MEDS: LEVOTHYROXINE 50 MCG TABLET PO SCH (05:59)
[2020-11-12] MEDS: ENOXAPARIN 60 MG/0.6 ML SQ SCH ×2 (05:59→17:06)
[2020-11-12 06:29] VITALS: BP 148/78
[2020-11-12] MEDS: DILTIAZEM CD 180 MG CAP.ER.24H PO SCH (09:45)
[2020-11-12] MEDS: PHENAZOPYRIDINE 200 MG TABLET PO SCH ×3 (09:45→20:33)
[2020-11-12] MEDS: TAMSULOSIN 0.4 MG CAP.ER.24H PO SCH (09:45)
[2020-11-12] MEDS: FINASTERIDE 5 MG TABLET PO SCH (09:45)
[2020-11-12] MEDS: FUROSEMIDE 40 MG TABLET PO SCH ×2 (09:46→20:33)
[2020-11-12] MEDS: ALLOPURINOL 300 MG TABLET PO SCH (09:46)
[2020-11-12] MEDS: LIDODERM 5% PATCH TD SCH (09:47)
[2020-11-12] MEDS: NYSTATIN OINT 15GM TP SCH ×2 (09:48→20:34)
[2020-11-12] MEDS: DIAPER RASH/ZINC OXIDE PASTE 40%, 56GM TP SCH ×2 (09:48→20:34)
[2020-11-12] MEDS ORDERED: TAMS-11 PO (11:11)
[2020-11-12] MEDS ORDERED: FINA5TAB4 PO (11:11)
[2020-11-12] MEDS ORDERED: PHEN-583 PO (11:11)
[2020-11-12] MEDS ORDERED: DIAPER RASH TP (11:11)
[2020-11-12] MEDS ORDERED: CYCL10TA2 PO (11:11)
[2020-11-12] MEDS ORDERED: LEVO50TA PO (11:11)
[2020-11-12] MEDS ORDERED: [UNRECOGNIZED DRUG - OTHER] TP (11:11)
[2020-11-12 13:06] VITALS: BP 124/76
[2020-11-12 20:12] VITALS: BP 105/67
[2020-11-12] MEDS: LIDODERM REMOVE PATCH NOTE XX SCH (20:34)
[2020-11-13 00:07] VITALS: BP 129/80
[2020-11-13] MEDS: ACETAMINOPHEN 500 MG TABLET PO SCH ×6 (01:22→22:00)
[2020-11-13] MEDS: ENOXAPARIN 60 MG/0.6 ML SQ SCH ×2 (06:17→20:52)
[2020-11-13] MEDS: LEVOTHYROXINE 50 MCG TABLET PO SCH (06:17)
[2020-11-13 06:24] LABS: CREATININE 1.03 mg/dL (0.7-1.3)
[2020-11-13 06:36] VITALS: BP 126/84
[2020-11-13] MEDS: TAMSULOSIN 0.4 MG CAP.ER.24H PO SCH (08:59)
[2020-11-13] MEDS: DILTIAZEM CD 180 MG CAP.ER.24H PO SCH (08:59)
[2020-11-13] MEDS: PHENAZOPYRIDINE 200 MG TABLET PO SCH ×3 (08:59→20:52)
[2020-11-13] MEDS: ALLOPURINOL 300 MG TABLET PO SCH (08:59)
[2020-11-13] MEDS: LIDODERM 5% PATCH TD SCH (08:59)
[2020-11-13] MEDS: FUROSEMIDE 40 MG TABLET PO SCH ×2 (08:59→20:52)
[2020-11-13] MEDS: FINASTERIDE 5 MG TABLET PO SCH (09:01)
[2020-11-13] MEDS: DIAPER RASH/ZINC OXIDE PASTE 40%, 56GM TP SCH ×2 (12:52→20:52)
[2020-11-13] MEDS: NYSTATIN OINT 15GM TP SCH ×2 (12:53→20:52)
[2020-11-13 13:14] VITALS: BP 105/68
[2020-11-13 20:06] VITALS: BP 132/82
[2020-11-13] MEDS: LIDODERM REMOVE PATCH NOTE XX SCH (20:54)
[2020-11-14 02:01] VITALS: BP 136/84
[2020-11-14] MEDS: ACETAMINOPHEN 500 MG TABLET PO SCH ×6 (02:17→22:32)
[2020-11-14] MEDS: LEVOTHYROXINE 50 MCG TABLET PO SCH (06:09)
[2020-11-14 07:59] VITALS: BP 141/80
[2020-11-14] MEDS: FINASTERIDE 5 MG TABLET PO SCH (08:50)
[2020-11-14] MEDS: TAMSULOSIN 0.4 MG CAP.ER.24H PO SCH (08:50)
[2020-11-14] MEDS: ALLOPURINOL 300 MG TABLET PO SCH (08:50)
[2020-11-14] MEDS: ENOXAPARIN 60 MG/0.6 ML SQ SCH ×2 (08:50→20:51)
[2020-11-14] MEDS: NYSTATIN OINT 15GM TP SCH ×2 (08:52→20:52)
[2020-11-14] MEDS: PHENAZOPYRIDINE 200 MG TABLET PO SCH ×3 (08:52→20:51)
[2020-11-14] MEDS: FUROSEMIDE 40 MG TABLET PO SCH ×2 (08:52→20:51)
[2020-11-14] MEDS: DIAPER RASH/ZINC OXIDE PASTE 40%, 56GM TP SCH ×2 (08:52→20:52)
[2020-11-14] MEDS: DILTIAZEM CD 180 MG CAP.ER.24H PO SCH (08:52)
[2020-11-14] MEDS: LIDODERM 5% PATCH TD SCH (10:49)
[2020-11-14 12:57] VITALS: BP 112/73
[2020-11-14 18:31] VITALS: BP 129/77
[2020-11-14] MEDS: LIDODERM REMOVE PATCH NOTE XX SCH (22:30)
[2020-11-15 00:08] VITALS: BP 137/84
[2020-11-15] MEDS: ACETAMINOPHEN 500 MG TABLET PO SCH ×6 (02:01→21:09)
[2020-11-15] MEDS: LEVOTHYROXINE 50 MCG TABLET PO SCH (06:07)
[2020-11-15 06:42] VITALS: BP 127/81
[2020-11-15] MEDS: PHENAZOPYRIDINE 200 MG TABLET PO SCH ×3 (08:35→21:08)
[2020-11-15] MEDS: FUROSEMIDE 40 MG TABLET PO SCH ×2 (08:35→21:08)
[2020-11-15] MEDS: DILTIAZEM CD 180 MG CAP.ER.24H PO SCH (08:35)
[2020-11-15] MEDS: ALLOPURINOL 300 MG TABLET PO SCH (08:35)
[2020-11-15] MEDS: ENOXAPARIN 60 MG/0.6 ML SQ SCH ×2 (08:35→21:07)
[2020-11-15] MEDS: FINASTERIDE 5 MG TABLET PO SCH (08:36)
[2020-11-15] MEDS: NYSTATIN OINT 15GM TP SCH ×2 (08:36→21:08)
[2020-11-15] MEDS: DIAPER RASH/ZINC OXIDE PASTE 40%, 56GM TP SCH ×2 (08:36→21:08)
[2020-11-15] MEDS: TAMSULOSIN 0.4 MG CAP.ER.24H PO SCH (08:36)
[2020-11-15] MEDS: LIDODERM 5% PATCH TD SCH (11:01)
[2020-11-15 12:56] VITALS: BP 121/77
[2020-11-15 19:03] VITALS: BP 107/71
[2020-11-15] MEDS: LIDODERM REMOVE PATCH NOTE XX SCH (22:30)
[2020-11-16] MEDS: ACETAMINOPHEN 500 MG TABLET PO SCH ×6 (01:52→22:05)
[2020-11-16 02:17] VITALS: BP 139/81
[2020-11-16 05:40] LABS: CREATININE 1.11 mg/dL (0.7-1.3)
[2020-11-16] MEDS: LEVOTHYROXINE 50 MCG TABLET PO SCH (05:48)
[2020-11-16] MEDS: TAMSULOSIN 0.4 MG CAP.ER.24H PO SCH (09:43)
[2020-11-16] MEDS: PHENAZOPYRIDINE 200 MG TABLET PO SCH ×3 (09:43→20:58)
[2020-11-16 09:44] VITALS: BP 135/80
[2020-11-16] MEDS: FUROSEMIDE 40 MG TABLET PO SCH ×2 (09:44→20:57)
[2020-11-16] MEDS: DILTIAZEM CD 180 MG CAP.ER.24H PO SCH (09:44)
[2020-11-16] MEDS: ALLOPURINOL 300 MG TABLET PO SCH (09:44)
[2020-11-16] MEDS: LIDODERM 5% PATCH TD SCH (09:45)
[2020-11-16] MEDS: DIAPER RASH/ZINC OXIDE PASTE 40%, 56GM TP SCH ×2 (09:46→21:01)
[2020-11-16] MEDS: NYSTATIN OINT 15GM TP SCH ×2 (09:47→21:02)
[2020-11-16] MEDS: ENOXAPARIN 60 MG/0.6 ML SQ SCH ×2 (09:55→20:59)
[2020-11-16 12:39] VITALS: BP 120/76
[2020-11-16] MEDS: FINASTERIDE 5 MG TABLET PO SCH (17:02)
[2020-11-16 18:48] VITALS: BP 109/73
[2020-11-16] MEDS: LIDODERM REMOVE PATCH NOTE XX SCH (22:05)
[2020-11-17 00:38] VITALS: BP 127/77
[2020-11-17] MEDS: ACETAMINOPHEN 500 MG TABLET PO SCH ×6 (02:04→21:55)
[2020-11-17] MEDS: LEVOTHYROXINE 50 MCG TABLET PO SCH (05:51)
[2020-11-17 06:56] VITALS: BP 120/77
[2020-11-17] MEDS: ALLOPURINOL 300 MG TABLET PO SCH (08:38)
[2020-11-17] MEDS: TAMSULOSIN 0.4 MG CAP.ER.24H PO SCH (08:38)
[2020-11-17] MEDS: LIDODERM 5% PATCH TD SCH (08:38)
[2020-11-17] MEDS: DILTIAZEM CD 180 MG CAP.ER.24H PO SCH (08:39)
[2020-11-17] MEDS: FUROSEMIDE 40 MG TABLET PO SCH ×2 (08:39→21:17)
[2020-11-17] MEDS: ENOXAPARIN 60 MG/0.6 ML SQ SCH ×2 (08:41→21:16)
[2020-11-17] MEDS: FINASTERIDE 5 MG TABLET PO SCH (08:48)
[2020-11-17] MEDS: DIAPER RASH/ZINC OXIDE PASTE 40%, 56GM TP SCH ×2 (10:54→21:55)
[2020-11-17] MEDS: NYSTATIN OINT 15GM TP SCH ×2 (10:54→21:55)
[2020-11-17 14:38] VITALS: BP 130/83
[2020-11-17 20:39] VITALS: BP 106/66
[2020-11-17] MEDS: LIDODERM REMOVE PATCH NOTE XX SCH (21:55)
[2020-11-18 00:01] VITALS: BP 139/79
[2020-11-18] MEDS: ACETAMINOPHEN 500 MG TABLET PO SCH ×6 (01:53→22:19)
[2020-11-18] MEDS: LEVOTHYROXINE 50 MCG TABLET PO SCH (06:36)
[2020-11-18 07:12] VITALS: BP 125/81
[2020-11-18] MEDS: LIDODERM 5% PATCH TD SCH (08:43)
[2020-11-18] MEDS: TAMSULOSIN 0.4 MG CAP.ER.24H PO SCH (08:44)
[2020-11-18] MEDS: ALLOPURINOL 300 MG TABLET PO SCH (08:44)
[2020-11-18] MEDS: DILTIAZEM CD 180 MG CAP.ER.24H PO SCH (08:44)
[2020-11-18] MEDS: FUROSEMIDE 40 MG TABLET PO SCH ×2 (08:44→22:20)
[2020-11-18] MEDS: ENOXAPARIN 60 MG/0.6 ML SQ SCH ×2 (08:51→22:20)
[2020-11-18] MEDS: METOLAZONE 2.5 MG TABLET PO SCH (08:51)
[2020-11-18] MEDS: NYSTATIN OINT 15GM TP SCH ×2 (09:00→22:20)
[2020-11-18] MEDS: DIAPER RASH/ZINC OXIDE PASTE 40%, 56GM TP SCH ×2 (09:00→22:20)
[2020-11-18] MEDS: FINASTERIDE 5 MG TABLET PO SCH (09:58)
[2020-11-18 13:52] VITALS: BP 125/80
[2020-11-18 21:05] VITALS: BP 129/75
[2020-11-18] MEDS: LIDODERM REMOVE PATCH NOTE XX SCH (22:29)
[2020-11-19 00:59] VITALS: BP 107/60
[2020-11-19] MEDS: ACETAMINOPHEN 500 MG TABLET PO SCH ×6 (01:57→21:50)
[2020-11-19] MEDS: LEVOTHYROXINE 50 MCG TABLET PO SCH (05:39)
[2020-11-19 06:08] LABS: ANION GAP 7 mmol/L (5-15); CALCIUM 9.5 mg/dL (8.5-10.1); CHLORIDE 97 mmol/L (98-107); CREATININE 0.91 mg/dL (0.7-1.3)
[2020-11-19] MEDS: DILTIAZEM CD 180 MG CAP.ER.24H PO SCH (08:44)
[2020-11-19] MEDS: METOLAZONE 2.5 MG TABLET PO SCH (08:44)
[2020-11-19] MEDS: TAMSULOSIN 0.4 MG CAP.ER.24H PO SCH (08:44)
[2020-11-19 08:45] VITALS: BP 113/72
[2020-11-19] MEDS: POTASSIUM CHLORIDE 20 MEQ TAB.ER.PRT PO SCH (08:45)
[2020-11-19] MEDS: FINASTERIDE 5 MG TABLET PO SCH (08:45)
[2020-11-19] MEDS: ALLOPURINOL 300 MG TABLET PO SCH (08:45)
[2020-11-19] MEDS: FUROSEMIDE 40 MG TABLET PO SCH ×2 (08:45→21:50)
[2020-11-19] MEDS: LIDODERM 5% PATCH TD SCH (08:46)
[2020-11-19] MEDS: ENOXAPARIN 60 MG/0.6 ML SQ SCH ×2 (08:46→21:51)
[2020-11-19] MEDS: DIAPER RASH/ZINC OXIDE PASTE 40%, 56GM TP SCH ×2 (08:47→21:51)
[2020-11-19] MEDS: NYSTATIN OINT 15GM TP SCH ×2 (08:48→21:51)
[2020-11-19 14:58] VITALS: BP 111/71
[2020-11-19 18:29] VITALS: BP 116/72
[2020-11-19] MEDS: LIDODERM REMOVE PATCH NOTE XX SCH (21:00)
[2020-11-20 00:10] VITALS: BP 110/71
[2020-11-20] MEDS: ACETAMINOPHEN 500 MG TABLET PO SCH ×6 (02:05→22:38)
[2020-11-20] MEDS: LEVOTHYROXINE 50 MCG TABLET PO SCH (05:43)
[2020-11-20 06:58] VITALS: BP 114/75
[2020-11-20] MEDS: LIDODERM 5% PATCH TD SCH (08:47)
[2020-11-20] MEDS: NYSTATIN OINT 15GM TP SCH ×2 (08:47→22:39)
[2020-11-20] MEDS: ENOXAPARIN 60 MG/0.6 ML SQ SCH ×2 (08:47→22:38)
[2020-11-20] MEDS: DIAPER RASH/ZINC OXIDE PASTE 40%, 56GM TP SCH ×2 (08:47→22:39)
[2020-11-20] MEDS: POTASSIUM CHLORIDE 20 MEQ TAB.ER.PRT PO SCH (08:48)
[2020-11-20] MEDS: ALLOPURINOL 300 MG TABLET PO SCH (08:48)
[2020-11-20] MEDS: FINASTERIDE 5 MG TABLET PO SCH (08:48)
[2020-11-20] MEDS: METOLAZONE 2.5 MG TABLET PO SCH (08:48)
[2020-11-20] MEDS: FUROSEMIDE 40 MG TABLET PO SCH ×2 (08:48→22:38)
[2020-11-20] MEDS: TAMSULOSIN 0.4 MG CAP.ER.24H PO SCH (08:48)
[2020-11-20] MEDS: DILTIAZEM CD 180 MG CAP.ER.24H PO SCH (08:49)
[2020-11-20 13:18] VITALS: BP 117/77
[2020-11-20 18:43] VITALS: BP 105/70
[2020-11-20] MEDS: LIDODERM REMOVE PATCH NOTE XX SCH (21:00)
[2020-11-21 00:23] VITALS: BP 109/61
[2020-11-21] MEDS: ACETAMINOPHEN 500 MG TABLET PO SCH ×6 (01:33→22:37)
[2020-11-21] MEDS: LEVOTHYROXINE 50 MCG TABLET PO SCH (05:59)
[2020-11-21 06:45] LABS: ANION GAP 4 mmol/L (5-15); CALCIUM 9.5 mg/dL (8.5-10.1); CHLORIDE 95 mmol/L (98-107); CREATININE 0.98 mg/dL (0.7-1.3)
[2020-11-21] MEDS ORDERED: MAGNESIUM SULFATE PMX 2GM/50ML 50 ML IV ONE (08:00)
[2020-11-21] MEDS: TAMSULOSIN 0.4 MG CAP.ER.24H PO SCH (08:22)
[2020-11-21] MEDS: ENOXAPARIN 60 MG/0.6 ML SQ SCH ×2 (08:22→20:50)
[2020-11-21] MEDS: ALLOPURINOL 300 MG TABLET PO SCH (08:23)
[2020-11-21] MEDS: POTASSIUM CHLORIDE 20 MEQ TAB.ER.PRT PO SCH ×2 (08:23→20:50)
[2020-11-21] MEDS: DILTIAZEM CD 180 MG CAP.ER.24H PO SCH (08:23)
[2020-11-21] MEDS: FINASTERIDE 5 MG TABLET PO SCH (08:23)
[2020-11-21] MEDS: FUROSEMIDE 40 MG TABLET PO SCH ×2 (08:23→20:50)
[2020-11-21] MEDS: NYSTATIN OINT 15GM TP SCH ×2 (08:24→20:50)
[2020-11-21] MEDS: DIAPER RASH/ZINC OXIDE PASTE 40%, 56GM TP SCH ×2 (08:24→20:50)
[2020-11-21] MEDS: LIDODERM 5% PATCH TD SCH (08:28)
[2020-11-21 13:10] VITALS: BP 110/66
[2020-11-21 18:36] VITALS: BP 126/81
[2020-11-21] MEDS: LIDODERM REMOVE PATCH NOTE XX SCH (20:51)
[2020-11-22 01:13] VITALS: BP 131/84
[2020-11-22] MEDS: ACETAMINOPHEN 500 MG TABLET PO SCH ×6 (02:21→22:42)
[2020-11-22] MEDS: LEVOTHYROXINE 50 MCG TABLET PO SCH (05:41)
[2020-11-22 06:04] LABS: ANION GAP 4 mmol/L (5-15); CALCIUM 9.5 mg/dL (8.5-10.1); CHLORIDE 96 mmol/L (98-107)
[2020-11-22 06:05] LABS: CREATININE 0.96 mg/dL (0.7-1.3)
[2020-11-22] MEDS: DIAPER RASH/ZINC OXIDE PASTE 40%, 56GM TP SCH ×2 (09:00→20:13)
[2020-11-22] MEDS: NYSTATIN OINT 15GM TP SCH ×2 (09:00→20:13)
[2020-11-22] MEDS: ENOXAPARIN 60 MG/0.6 ML SQ SCH ×2 (09:34→20:13)
[2020-11-22] MEDS: DILTIAZEM CD 180 MG CAP.ER.24H PO SCH (09:34)
[2020-11-22] MEDS: POTASSIUM CHLORIDE 20 MEQ TAB.ER.PRT PO SCH ×4 (09:34→18:25)
[2020-11-22] MEDS: ALLOPURINOL 300 MG TABLET PO SCH (09:34)
[2020-11-22] MEDS: LIDODERM 5% PATCH TD SCH (09:34)
[2020-11-22] MEDS: TAMSULOSIN 0.4 MG CAP.ER.24H PO SCH (09:34)
[2020-11-22] MEDS: FINASTERIDE 5 MG TABLET PO SCH (09:35)
[2020-11-22] MEDS: FUROSEMIDE 40 MG TABLET PO SCH ×2 (09:41→20:13)
[2020-11-22 09:51] VITALS: BP 155/85
[2020-11-22 13:42] VITALS: BP 149/85
[2020-11-22 18:55] VITALS: BP 135/83
[2020-11-22] MEDS: LIDODERM REMOVE PATCH NOTE XX SCH (20:13)
[2020-11-23 01:39] VITALS: BP 124/79
[2020-11-23] MEDS: POTASSIUM CHLORIDE 20 MEQ TAB.ER.PRT PO SCH ×4 (01:45→21:23)
[2020-11-23] MEDS: ACETAMINOPHEN 500 MG TABLET PO SCH ×7 (01:45→22:11)
[2020-11-23] MEDS: LEVOTHYROXINE 50 MCG TABLET PO SCH (05:48)
[2020-11-23 06:41] LABS: ANION GAP 5 mmol/L (5-15); CALCIUM 9.6 mg/dL (8.5-10.1); CHLORIDE 98 mmol/L (98-107)
[2020-11-23] MEDS: LIDODERM 5% PATCH TD SCH (09:18)
[2020-11-23] MEDS: DILTIAZEM CD 180 MG CAP.ER.24H PO SCH (09:18)
[2020-11-23] MEDS: FUROSEMIDE 40 MG TABLET PO SCH ×2 (09:18→21:23)
[2020-11-23] MEDS: ENOXAPARIN 60 MG/0.6 ML SQ SCH ×2 (09:18→21:23)
[2020-11-23] MEDS: FINASTERIDE 5 MG TABLET PO SCH (09:19)
[2020-11-23] MEDS: ALLOPURINOL 300 MG TABLET PO SCH (09:19)
[2020-11-23] MEDS: TAMSULOSIN 0.4 MG CAP.ER.24H PO SCH (09:19)
[2020-11-23 09:21] VITALS: BP 124/81
[2020-11-23] MEDS: NYSTATIN OINT 15GM TP SCH ×2 (09:21→21:00)
[2020-11-23] MEDS: DIAPER RASH/ZINC OXIDE PASTE 40%, 56GM TP SCH ×2 (09:21→21:00)
[2020-11-23 12:15] VITALS: BP 144/84
[2020-11-23 19:23] VITALS: BP 119/75
[2020-11-23] MEDS: LIDODERM REMOVE PATCH NOTE XX SCH (21:03)
[2020-11-24 01:16] VITALS: BP 138/83
[2020-11-24] MEDS: ACETAMINOPHEN 500 MG TABLET PO SCH ×5 (01:30→15:45)
[2020-11-24] MEDS: LEVOTHYROXINE 50 MCG TABLET PO SCH (05:39)
[2020-11-24 07:45] LABS: BASOPHILS % (AUTO) 1 % (0-1); EOSINOPHILS % (AUTO) 3 % (1-7); LYMPHOCYTES % (AUTO) 20 % (22-44); MEAN CORPUSCULAR HEMOGLOBIN 28.5 pg (27.5-34.5); MEAN CORPUSCULAR HGB CONC 32.6 g/dL (33.2-36.2); MEAN PLATELET VOLUME 8.6 fL (7.4-10.4); MONOCYTES % (AUTO) 8 % (2-9); NEUTROPHILS % (AUTO) 68 % (42-75); PLATELET COUNT 184 x10^3/uL (130-400); RED BLOOD COUNT 4.87 x10^6/uL (4.38-5.82); RED CELL DISTRIBUTION WIDTH 14.9 % (9.4-14.8)
[2020-11-24 07:56] LABS: CHLORIDE 99 mmol/L (98-107)
[2020-11-24 07:58] VITALS: BP 125/77
[2020-11-24 08:00] LABS: ALBUMIN 3.3 g/dL (3.4-5.0); ANION GAP 5 mmol/L (5-15); CALCIUM 9.4 mg/dL (8.5-10.1); CREATININE 0.92 mg/dL (0.7-1.3)
[2020-11-24] MEDS: POTASSIUM CHLORIDE 20 MEQ TAB.ER.PRT PO SCH ×2 (08:30→15:45)
[2020-11-24] MEDS: TAMSULOSIN 0.4 MG CAP.ER.24H PO SCH (08:30)
[2020-11-24] MEDS: DILTIAZEM CD 180 MG CAP.ER.24H PO SCH (08:30)
[2020-11-24] MEDS: FUROSEMIDE 40 MG TABLET PO SCH (08:31)
[2020-11-24] MEDS: FINASTERIDE 5 MG TABLET PO SCH (08:31)
[2020-11-24] MEDS: ENOXAPARIN 60 MG/0.6 ML SQ SCH (08:31)
[2020-11-24] MEDS: ALLOPURINOL 300 MG TABLET PO SCH (08:31)
[2020-11-24] MEDS: NYSTATIN OINT 15GM TP SCH (08:35)
[2020-11-24] MEDS: DIAPER RASH/ZINC OXIDE PASTE 40%, 56GM TP SCH (08:35)
[2020-11-24] MEDS: LIDODERM 5% PATCH TD SCH (08:35)
[2020-11-24 13:43] VITALS: BP 120/62
== END 2020-11-24 17:04 | disposition home or self-care (01) | DRG 728 ==
LOC: ED 04:01 → EDIP 04:34 → 3N 06:13
PROVIDERS: ADMIT Internal Medicine; ATTEND Family Medicine
DX: N49.2 Inflammatory disorders of scrotum (principal); L03.314 Cellulitis of groin; L03.116 Cellulitis of left lower limb; Z68.45 Body mass index [BMI] 70 or greater, adult; E66.2 Morbid (severe) obesity with alveolar hypoventilation; N39.0 Urinary tract infection, site not specified; B37.9 Candidiasis, unspecified; E03.9 Hypothyroidism, unspecified; E87.6 Hypokalemia; F19.10 Other psychoactive substance abuse, uncomplicated; I12.9 Hypertensive chronic kidney disease with stage 1 through stage 4 chronic kidney disease, or unspecified chronic kidney disease; L30.4 Erythema intertrigo; M10.9 Gout, unspecified; N13.9 Obstructive and reflux uropathy, unspecified; N18.30 Chronic kidney disease, stage 3 unspecified; N50.89 Other specified disorders of the male genital organs; Q55.64 Hidden penis; Z74.01 Bed confinement status; Z79.899 Other long term (current) drug therapy
CPT/HCPCS: 36415; 76870; 80048; 80053; 80069; 81001; 82565; 83605; 83735; 83880; 84145; 84484; 85025; 85651; 86140; 87040; 87086; 93005; 93975; 96365; 96375; C8929; G0378; J0295; J1450; J1650; J1885; J1940; J3370; Q9957; J2270; J3475; J7040